=== PATIENT | female | born 1940 | race Caucasian/White ===

== ENCOUNTER 2021-02-27 21:32 | Emergency (ER) | payer MEDICARE ==
[~2021-02-27] VITALS: Ht 170.2 cm; Wt 72.0 kg
[2021-02-27] MEDS ORDERED: NAPROXEN500 MG PO (23:57)
[2021-02-28 00:30] VITALS: BP 130/72
[2021-02-28] MEDS ORDERED: PAROXETINE20 MG PO (05:36)
[2021-02-28] MEDS ORDERED: ATENOLOL25 MG PO (05:36)
[2021-02-28] MEDS ORDERED: LOSARTAN POTASS25 MG PO (05:37)
[2021-02-28] MEDS ORDERED: ASPIRIN81 MG PO (05:37)
[2021-02-28] MEDS ORDERED: LEVOTHYROXIN75 MCG PO (05:37)
== END 2021-02-28 00:30 | disposition home or self-care (01) ==
LOC: ED 21:32
DX: M79.605 Pain in left leg (principal); I10 Essential (primary) hypertension

== ENCOUNTER 2022-04-19 18:10 | Emergency (ER) | payer MEDICARE ==
[~2022-04-19] VITALS: Ht 170.2 cm; Wt 113.6 kg
[~2022-04-19 18:10] MED LIST: ASPIRIN81 MG PO; ATENOLOL25 MG PO; D31000 UNIT PO; LEVOTHYROXIN75 MCG PO; LOSARTAN POTASS25 MG PO; LOVASTATIN20 M1 PO; NAPROXEN500 MG PO; PAROXETINE20 MG PO
[2022-04-19 18:26] VITALS: BP 127/46
[2022-04-19 18:31] VITALS: BP 117/54
[2022-04-19 18:49] LABS: HEMATOCRIT 39.6 % (37.0-47.0); HEMOGLOBIN 12.6 g/dl (12.0-16.0); IMMATURE GRANULOCYTES 0.2 % (0.0-5.0); MEAN CELL VOLUME 96.1 fL CALC (80.0-100.0); MEAN CORPUSCULAR HGB 30.6 pG CALC (26.0-32.0); MEAN CORPUSCULAR HGB CONC 31.8 g/dL CAL (32.0-36.0); NEUT# 3.39 thou/uL (2.00-7.15); RED BLOOD COUNT 4.12 mill/uL (4.20-5.60)
[2022-04-19 19:04] LABS: ALBUMIN 3.8 g/dL (3.2-5.0); ALKALINE PHOSPHATASE 60 u/l (38-126); ANION GAP 13 (6-22 (CALC)); BILIRUBIN, TOTAL 0.8 mg/dL (0.0-1.4); BUN 18 mg/dL (8-23); BUN/CREATININE RATIO 18 (12-20 (CALC)); CARBON DIOXIDE 26 mmol/l (22-30); CHLORIDE 101 mmol/l (95-108); CPK 411 u/l (30-165); GFR FOR AFR.AMER. > 60 ML/MIN (>=60 (CALC)); GFR OTHER RACES 53 ML/MIN (>=60 (CALC)); MAGNESIUM 1.8 mg/dL (1.6-2.3); POTASSIUM 3.7 mmol/l (3.5-5.1); SGOT/AST 82 u/l (9-36); SODIUM 136 mmol/l (137-146); TOTAL PROTEIN 6.7 g/dL (6.3-8.2)
[2022-04-19 20:05] LABS: URINE BILIRUBIN - DIPSTICK NEGATIVE (NEGATIVE); URINE BLOOD DIPSTICK SMALL (NEGATIVE); URINE COLOR YELLOW; URINE GLUCOSE - DIPSTICK NEGATIVE (NEGATIVE); URINE KETONE 15 mg/dL (NEGATIVE); URINE PH 5.5 (4.5-8.0); URINE PROTEIN - DIPSTICK 30 mg/dL (NEG-TRACE); URINE SPECIFIC GRAVITY >=1.030; URINE UROBILINOGEN - DIPSTICK 0.2 E.U./dL (0.2)
[2022-04-19 20:09] LABS: URINE LEUK ESTERASE SMALL (NEGATIVE); URINE NITRITE - DIPSTICK NEGATIVE (Negative)
[2022-04-19 20:13] LABS: URINE BACTERIA MODERATE hpf; URINE MUCUS FEW hpf (NONE-FEW); URINE SQUAMOUS EPITHELIAL CELL FEW EPI/hpf (0-FEW)
[2022-04-19] MEDS ORDERED: BACTRIM DS1 TAB PO (21:24)
[2022-04-19] MEDS ORDERED: TAM75CAP PO (21:24)
[2022-04-19 21:29] VITALS: BP 117/54
== END 2022-04-19 21:35 | disposition home or self-care (01) ==
LOC: ED 18:10
PROVIDERS: Family Medicine
DX: J10.1 Influenza due to other identified influenza virus with other respiratory manifestations (principal); N39.0 Urinary tract infection, site not specified; I10 Essential (primary) hypertension; Z20.822 Contact with and (suspected) exposure to COVID-19